=== PATIENT | male | born 1975 | race Native Hawaiian/Other Pacific Islander ===

== ENCOUNTER 2022-07-11 17:36 | Emergency (ER) | payer OTHER ==
[~2022-07-11] VITALS: Ht 185.4 cm; Wt 71.2 kg
[2022-07-11 18:09] VITALS: BP 148/86; TEMP 97.2
[2022-07-11 19:25] LABS: PLATELET COUNT 204 K/uL (142-355)
[2022-07-11 19:31] LABS: POTASSIUM 3.6 mmol/L (3.6-5.2); SODIUM 140 mmol/L (136-145)
== END 2022-07-11 21:30 | disposition home or self-care (01) ==
LOC: ED 17:36
PROVIDERS: Family Medicine
DX: R10.9 Unspecified abdominal pain (principal); K40.90 Unilateral inguinal hernia, without obstruction or gangrene, not specified as recurrent
CPT/HCPCS: 36415; 80053; 80307; 81002; 82150; 83690; 85027; 99283